=== PATIENT | female | born 1940 | race Caucasian/White ===

== ENCOUNTER → 2019-11-02 10:40 | Outpatient (BNVA) | payer MEDICARE, SELFPAY | PROVIDERS: Family Provider Family Medicine; PCP Family Medicine; Visit Provider Family Medicine | DX: K58.0 Irritable bowel syndrome with diarrhea (principal); F41.9 Anxiety disorder, unspecified; I07.1 Rheumatic tricuspid insufficiency | CPT/HCPCS: 80053; 80061; 84439; 84443; 85025 ==